=== PATIENT | female | born 1945 | race Caucasian/White ===

== ENCOUNTER 2019-01-14 22:55 | Emergency (ER) | payer OTHER ==
[~2019-01-14] VITALS: Ht 165.1 cm; Wt 79.4 kg
[2019-01-14 23:29] LABS: Basophils # (auto) 0.1 uL; Basophils % (auto) 1.2 % (0.0-2.0); Eosinophils # (auto) 0 uL; Eosinophils % (auto) 0.2 % (0.0-7.0); Hematocrit 38.1 % (36.0-46.0); Hemoglobin 13.1 g/dL (12.2-16.2); Lymphocytes # (auto) 1.5 uL; Lymphocytes % (auto) 19.6 % (10.0-50.0); Mean Corpuscular Hemoglobin 30.3 pg (28.0-32.0); Mean Corpuscular Hgb Conc. 34.4 g/dL (32.0-36.0); Mean Corpuscular Volume 88.1 fL (80.0-100.0); Monocytes # (auto) 0.3 uL; Monocytes % (auto) 4.1 % (0.0-12.0); Neutrophils # (auto) 5.9 uL; Neutrophils % (auto) 74.9 % (37.0-80.0); Platelet Count (auto) 225 10^3/uL (140-450); Red Blood Cells 4.33 10^6/uL (4.0-5.20); Red Cell Distribution Width 13.4 % (11.8-14.3); White Blood Cell 7.8 10^3/uL (4.4-10.8)
[2019-01-14 23:45] VITALS: BP 164/100
[2019-01-14 23:49] LABS: Alanine Aminotransferase 23 U/L (13-56); Albumin 3.9 g/dL (3.4-5.0); Anion Gap 7 (5-15); Aspartate Aminotransferase 13 U/L (15-37); BUN/Creatinine Ratio 19.5; Blood Urea Nitrogen 16 mg/dL (7-18); Calcium 9.2 mg/dL (8.5-10.1); Carbon Dioxide 26 mmol/L (21-32); Chloride 107 mmol/L (98-107); GFR African American 87 mL/min; GFR Non-African American 72 mL/min; Glucose 122 mg/dL (74-106); Magnesium 2.3 mg/dL (1.6-2.6); Potassium 3.7 mmol/L (3.5-5.1); Sodium 140 mmol/L (136-145)
[2019-01-14 23:54] LABS: Alkaline Phosphatase 61 U/L (45-117); Bilirubin, Total 0.2 mg/dL (0.2-1.0); Total Protein 7.1 g/dL (6.4-8.2)
[2019-01-15 01:40] LABS: Urine Bacteria FEW /hpf (None Seen); Urine Blood 1+ /uL (Negative); Urine WBC 3 /hpf (0 - 5)
== END 2019-01-15 02:31 | disposition left against medical advice (07) ==
LOC: ER 22:55 → EDBD 22:55 → ER 01-15 02:31
DX: R07.89 Other chest pain (principal); Z53.21 Procedure and treatment not carried out due to patient leaving prior to being seen by health care provider
CPT/HCPCS: 36415; 71045; 80053; 81001; 83735; 84484; 85025; 93005

== ENCOUNTER → 2022-10-19 | Outpatient (CLI) | payer OTHER ==
[~2022-10-19] VITALS: Ht 162.6 cm; Wt 65.8 kg
== END | disposition home or self-care (01) ==
LOC: Rad HDHVI 09:45
PROVIDERS: ATTEND Internal Medicine Cardiovascular Disease
DX: I51.4 Myocarditis, unspecified (principal); R00.2 Palpitations; R07.89 Other chest pain; R06.02 Shortness of breath; E78.5 Hyperlipidemia, unspecified; R42 Dizziness and giddiness; J44.9 Chronic obstructive pulmonary disease, unspecified
CPT/HCPCS: 78452; 93017; 96374; A9500

== ENCOUNTER → 2023-06-19 | Outpatient (CLI) | payer OTHER ==
[2023-06-19 08:25] LABS: Urine Bacteria NONE SEEN /hpf (None Seen); Urine Blood Negative /uL (Negative); Urine Clarity Clear (Clear); Urine Color Colorless (Yellow); Urine Protein, UAD Negative (Negative); Urine Specific Gravity 1.006 (1.001-1.035); Urine Urobilinogen Normal (Negative); Urine WBC 2 /hpf (0 - 5)
[2023-06-19 08:29] LABS: Basophils # (auto) 0.1 10 ^3/uL (0-0.2); Basophils % (auto) 1.1 % (0.0-2.0); Eosinophils # (auto) 0.1 10 ^3/uL (0-0.8); Eosinophils % (auto) 1.3 % (0.0-7.0); Hematocrit 41.1 % (36.0-46.0); Hemoglobin 13.7 g/dL (12.2-16.2); Lymphocytes # (auto) 2.5 10 ^3/uL (0.4-5.4); Lymphocytes % (auto) 40.2 % (10.0-50.0); Mean Corpuscular Hemoglobin 30.3 pg (28.0-32.0); Mean Corpuscular Hgb Conc. 33.4 g/dL (32.0-36.0); Mean Corpuscular Volume 90.7 fL (80.0-100.0); Monocytes # (auto) 0.4 10 ^3/uL (0-1.3); Monocytes % (auto) 7.3 % (0.0-12.0); Neutrophils # (auto) 3.1 10 ^3/uL (1.6-8.6); Neutrophils % (auto) 50.1 % (37.0-80.0); Red Blood Cells 4.54 10^6/uL (4.0-5.20); Red Cell Distribution Width 13.1 % (11.8-14.3); White Blood Cell 6.1 10^3/uL (4.4-10.8)
[2023-06-19 09:10] LABS: Alanine Aminotransferase 16 U/L (7-40); Albumin 4.5 g/dL (3.2-4.8); Alkaline Phosphatase 65 U/L (46-116); Anion Gap 4 (5-15); Aspartate Aminotransferase 13 U/L (13-40); BUN/Creatinine Ratio 19.7 (10.0-20.0); Blood Urea Nitrogen 14 mg/dL (9-23); Carbon Dioxide 31 mmol/L (20-30); Chloride 104 mmol/L (98-107); Creatine Kinase IFCC 98 U/L (34-145); Glucose 91 mg/dL (74-106); LDL Cholesterol 112 mg/dL (< 100); Potassium 4.2 mmol/L (3.5-5.1); Sodium 139 mmol/L (136-145); Triglycerides 48 mg/dL (< 150)
[2023-06-19 09:11] LABS: Bilirubin, Total 0.6 mg/dL (0.2-1.0); Cholesterol 191 mg/dL (< 200); HDL Cholesterol 71 mg/dL (40-59); Total Protein 7.2 g/dL (5.7-8.2)
== END | disposition home or self-care (01) ==
LOC: LAB 08:01
PROVIDERS: ATTEND Internal Medicine
DX: Z00.00 Encounter for general adult medical examination without abnormal findings (principal); E78.5 Hyperlipidemia, unspecified; E03.9 Hypothyroidism, unspecified
CPT/HCPCS: 36415; 80053; 80061; 81001; 82306; 82550; 84436; 84443; 84480; 85025; 87086

== ENCOUNTER → 2024-06-23 | Day surgery (SDC) | payer OTHER ==
[2024-06-16 14:37] LABS: Urine Bacteria None Seen /hpf (None Seen)
[2024-06-16 14:38] LABS: Basophils # (auto) 0.1 10 ^3/uL (0-0.2); Basophils % (auto) 1.2 % (0.0-2.0); Eosinophils # (auto) 0.1 10 ^3/uL (0-0.8); Eosinophils % (auto) 1.6 % (0.0-7.0); Hematocrit 42.8 % (36.0-46.0); Hemoglobin 14.2 g/dL (12.2-16.2); Lymphocytes # (auto) 2.8 10 ^3/uL (0.4-5.4); Lymphocytes % (auto) 36.9 % (10.0-50.0); Mean Corpuscular Hemoglobin 29.8 pg (28.0-32.0); Mean Corpuscular Hgb Conc. 33.3 g/dL (32.0-36.0); Mean Corpuscular Volume 89.7 fL (80.0-100.0); Monocytes # (auto) 0.5 10 ^3/uL (0-1.3); Monocytes % (auto) 6.6 % (0.0-12.0); Neutrophils % (auto) 53.7 % (37.0-80.0); Nucleated Red Blood Cells % 0.1 %; Platelet Count (auto) 279 10^3/uL (140-450); Red Blood Cells 4.77 10^6/uL (4.0-5.20); Red Cell Distribution Width 13.3 % (11.8-14.3); White Blood Cell 7.5 10^3/uL (4.4-10.8)
[2024-06-16 14:55] LABS: INR 1.01 (0.9-1.15); Partial Thromboplastin Time 27.8 SEC (24.5-34.5); Prothrombin Time 10.7 sec (9.3-11.8)
[2024-06-16 14:57] LABS: Urine Blood TRACE /uL (Negative); Urine Clarity Clear (Clear); Urine Color Light-Yellow (Yellow); Urine Protein, UAD Negative (Negative); Urine Specific Gravity 1.013 (1.001-1.035); Urine Squamous Epithelial Cell FEW /hpf (<5); Urine Urobilinogen Normal (Negative); Urine WBC 2 /HPF (0-5); Urine pH 6.5 (5.0-9.0)
[2024-06-16 15:57] LABS: Alanine Aminotransferase 14 U/L (7-40); Albumin 4.7 g/dL (3.2-4.8); Alkaline Phosphatase 70 U/L (46-116); Anion Gap 8 (5-15); Aspartate Aminotransferase 13 U/L (13-40); BUN/Creatinine Ratio 19.5 (10.0-20.0); Blood Urea Nitrogen 16 mg/dL (9-23); Carbon Dioxide 30 mmol/L (20-31); Chloride 102 mmol/L (98-107); Sodium 140 mmol/L (136-145)
[2024-06-16 15:58] LABS: Bilirubin, Total 0.5 mg/dL (0.2-1.0); Total Protein 7.2 g/dL (5.7-8.2)
[2024-06-16 16:06] LABS: Glucose 117 mg/dL (74-106)
[~2024-06-23] VITALS: Ht 162.6 cm; Wt 68.0 kg
[~2024-06-23] MED LIST: ACETAMINOPHEN IV 100 ML IV ONE; DexAMETHasone SOD PHOS 10MG/1ML VIAL INJ ONE; GABA-1308 PO; HYDROmorphone HCL 2 MG/ML VL/or syr IV PRN; HYDROmorphone HCL 2 MG/ML VL/or syr ONE; KETOROLAC TROMETH 30 MG/ML 1ML VIAL ONE; MEPERIDINE HCL (25 MG/ML) 1ML VIAL ONE; MIDAZOLAM HCL 2MG/2ML 2ml VIAL (1mg/ml) IV PRN; MIDAZOLAM HCL 2MG/2ML 2ml VIAL (1mg/ml) ONE; MORPHINE SULFATE 4 MG/ML SYR/VIAL IV PRN; PANT40TA2 PO; PROPOFOL 10 MG/ML 20 ML IV ONE; TRAM50TA2 PO; ceFAZolin 2 GM/D5W100ml 100 ML IV ONE; ePHEDrine SULFATE 50 MG/ML AMP IV PRN; fentaNYL CITRATE 100 MCG/2 ML VL ONE; hydrALAZINE HCL 20 MG/ML VL IV PRN
[2024-06-23] MEDS: BUPIVACAINE HCL 0.25% P/F 10 ML VIAL ONE (07:32)
[2024-06-23 08:17] VITALS: PULSE 80; RESP 15; TEMP 97.2
[2024-06-23 08:35] VITALS: PULSE 74; RESP 14
[2024-06-23] MEDS: HYDROmorphone HCL 2 MG/ML VL/or syr IV ONE (08:38)
[2024-06-23] MEDS: ACETAMINOPHEN IV 1000 MG/100ML (10MG/ML) IV ONE (09:02)
[2024-06-23 09:30] VITALS: PULSE 64; RESP 14
--- NOTE | 2024-06-23 10:00 | DVHOP2 ---
Operative Report - 2 Report Details Date: 06/23/24 Preop Diagnosis: Left carpal tunnel syndrome and left middle finger trigger finger Postop Diagnosis: Left carpal tunnel syndrome and left middle finger trigger finger Surgeon: Pepe Cr MD Airplane Cleaner: Donta ford Anesthesiologist: Dr Farias Anesthesia: Mac, Local Implant: None Consent: She presented to the clinic with a history left carpal tunnel syndrome and left middle finger trigger fingering. Nonoperative and operative management options were discussed. Pros and cons were discussed. Benefits, risks and treatment alternatives were discussed. Surgery in the form of carpal tunnel release and trigger finger release was discussed with her. The patient was informed of the risks and benefits of the procedure. These include but are not limited to complications of anesthesia, postoperative infection, incomplete relief of symptoms, recurrence of symptoms, damage to blood vessels, nerves and tendons, deep venous thrombosis, pulmonary embolism and possible need for repeat surgery in the future. Complications: None Estimated Blood Loss: Less than 10 mL Name of Procedure Performed Left carpal tunnel release and trigger finger release, 3rd digit Procedure Details Procedure Details: Local anesthesia was injected in the proposed site. An incision was made based on anatomical landmarks in line of third interdigital webspace. The skin and the subcutaneous tissue were dissected. The deep fascia was incised. Care was taken to stay on the ulnar side of the incision. The fat was dissected. The palmar fascia was identified and dissected. The transverse carpal ligament was now identified. No variants of median nerve branches such as the recurrent branch was noted. The dissection was completed proximally and distally to ensure safety of incising the retinaculum. A 15 blade was used to start the release. Next tenotomy scissors were used to dissect under the retinaculum. Median nerve was identified before the incision was carried out further. Next the tenotomy scissors were inserted right around the retinaculum with a [place] elevator inserted below it to release it distally as well as proximally. Excellent release was noted and confirmed with a hemostat that was inserted and spread both proximally and distally. The nerve was noted to be swollen and adherent to the radial portion of the retinaculum and was carefully released without any undue tension and dissection. Irrigation was given and the incision was closed with 3-0 nylon A small incision was made over the crease over the A1 zhanna. The skin and the subcutaneous tissue were dissected. The A1 zhanna was identified. Dissection was continued proximally and distally to ensure that the neurovascular bundle is out of the way. Appropriate retractors were placed. An incision was made with a scalpel over the A1 zhanna. Next, a Metzenbaum scissors was inserted to complete the release proximally as well as distally. Care was taken to ensure that the scissors are only on the zhanna and nowhere near the neurovascular bundle are too deep into the tendon. Excellent release was noted. No bowstringing was noted. Irrigation was given after release of tourniquet. Skin incision was closed with 3-0 nylon. Sterile dressing was applied. The patient was taken to the recovery. The patient had normal sensation in the distal fingers. The patient was able to move her fingers as tolerated. The patient was comfortable and then discharged home. Condition Good Disposition Home PEPE CR MD Jun 23, 2024 10:00
[2024-06-23] MEDS: ONDANSETRON HCL 4 MG/2 ML VIAL IV ONE (10:08)
[2024-06-23 10:30] VITALS: PULSE 60; RESP 14
== END | disposition home or self-care (01) ==
LOC: SUR 06:15
PROVIDERS: ATTEND Orthopaedic Surgery Sports Medicine
DX: G56.02 Carpal tunnel syndrome, left upper limb (principal); M65.332 Trigger finger, left middle finger; K44.9 Diaphragmatic hernia without obstruction or gangrene; Z79.899 Other long term (current) drug therapy; Z90.49 Acquired absence of other specified parts of digestive tract
CPT/HCPCS: 26055; 36415; 64721; 80053; 81001; 85025; 85610; 85730; J1100; J1171; J1885; J2175; J2250; J2405; J2704; J3010; J3490; J0131